=== PATIENT | female | born 1965 | race Caucasian/White ===

== ENCOUNTER 2021-06-17 08:23 | Emergency (ER) | payer OTHER, SELFPAY ==
--- NOTE | 2021-06-17 08:27 | ED.URI ---
HPI - URI/Sore Throat General Chief Complaint: Upper Respiratory Infection Stated Complaint: Sore Throat/Headache Time Seen by Provider: 06/17/21 08:28 Source: patient and RN notes reviewed History of Present Illness HPI Narrative: Patient is a 56-year-old female who presents to urgent care with complaints of a headache and sore throat. Patient states that she had congestion and postnasal drainage on Wednesday but the hiking of her symptoms started last night. Patient states she has been taking DayQuil and Tylenol. Denies any fevers but states she has had body aches and chills. Denies of any known exposures to COVID and patient has had a COVID-vaccine. No other acute complaints. No acute distress noted. Patient under the plan of care. Some parts of this dictation were generated by voice recognition software and may contain typographical and/or grammatical inaccuracies. Related Data Home Medications Medication Instructions Recorded Confirmed codeine-guaifenesin ml 06/17/21 valacyclovir 06/17/21 Allergies Allergy/AdvReac Type Severity Reaction Status Date / Time No Known Allergies Allergy Verified 06/17/21 08:35 Review of Systems Review of Systems: CONSTITUTIONAL: Reports of chills and sweats EYES: Denies visual changes, redness, or discharge. ENT: Reports of sore throat, congestion and postnasal drainage CARDIOVASCULAR: Denies chest pain, palpitations, or edema. RESPIRATORY: Denies cough or dyspnea. GASTROINTESTINAL: Denies abdominal pain, nausea, vomiting, or diarrhea. GENITOURINARY: Denies dysuria or hematuria. SKIN: Denies rash or itching. MUSCULOSKELETAL: Denies back pain, joint pain. Reports of body aches NEUROLOGIC: Reports of headache All other systems reviewed are negative, except as documented in HPI. PMFSH Comments At the time of my signature, I reviewed and agree with the nursing past medical, surgical, social, and family history. There is no relevant family history pertinent to the patient complaint. Exam Narrative: GENERAL: This is a well-nourished, well-developed patient, in no apparent distress. HEAD: normocephalic, atraumatic. Frontal sinus tenderness EYES: PERRL. Sclera clear/white. Vision is grossly intact. EARS: External ears normal, auditory canals clear and without drainage, TMs normal without perforation. Hearing grossly intact. NOSE: External nose normal with no obvious nasal discharge, nares without redness, no rhinorrhea. THROAT: Mucous membranes moist. Moderate postnasal drainage with mild to moderate erythema noted to posterior oropharynx without exudate or ulceration NECK: Neck supple, non-tender without lymphadenopathy, masses or thyromegaly. CARDIOVASCULAR: Regular rate and rhythm without murmurs, gallops, or rubs. RESPIRATORY: Clear to auscultation. Breath sounds equal bilaterally. No wheezes, rales, or rhonchi. SKIN: warm, intact with no suspicious lesions or rash, good texture and turgor. NEURO: awake, alert, and oriented to person, place and time. There were no obvious focal neurologic abnormalities. EXTREMITIES: No clubbing, cyanosis, or edema. Course Course Level of Care: Express Care Visit Vital Signs Vital signs: Vital Signs Temperature 98.7 F 06/17/21 08:32 Pulse Rate 119 H 06/17/21 08:32 Respiratory Rate 14 06/17/21 08:32 Blood Pressure 133/92 H 06/17/21 08:32 Pulse Oximetry 100 06/17/21 08:32 Temperature 98.7 F 06/17/21 08:32 Pulse Rate 119 H 06/17/21 08:32 Respiratory Rate 14 06/17/21 08:32 Blood Pressure 133/92 H 06/17/21 08:32 Pulse Oximetry 100 06/17/21 08:32 Reviewed-patient is informed that they may have pre-hypertension or hypertension based on a blood pressure reading in the department. I recommend the patient call the primary care provider listed on their discharge instructions or a physician of their choice this week to arrange follow-up for further evaluation of possible pre-hypertension or hypertension. MDM - URI/Sore Throat MDM N
[2021-06-17 08:32] VITALS: BP 133/92; PULSE 119; RESP 14; TEMP 37.1; O2SAT 100
[2021-06-18 21:18] LABS: SARS-CoV-2 RNA PCR Positive
== END 2021-06-17 09:11 | disposition home or self-care (01) ==
PROVIDERS: Emergency Provider Nurse Practitioner Family
DX: U07.1 COVID-19 (principal)
CPT/HCPCS: 87081; 87880; 99213; C9803; G0463; U0003; U0005